=== PATIENT | male | born 1980 | race American Indian/Alaskan Native ===

== ENCOUNTER 2021-11-02 08:35 | Emergency (ER) | payer SELFPAY ==
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
[2021-11-02] MEDS ORDERED: IBUPROFEN 800 MG TAB PO NR (11:33)
[2021-11-02] MEDS ORDERED: predniSONE 20 MG TAB PO NR (11:33)
[2021-11-02] MEDS ORDERED: CYCLOBENZAPRINE 10 MG TAB PO NR (11:33)
[2021-11-02] MEDS ORDERED: IBUPROFEN 800 MG TAB PO ONE (11:55)
[2021-11-02] MEDS ORDERED: CYCLOBENZAPRINE 10 MG TAB PO ONE (11:55)
[2021-11-02] MEDS ORDERED: predniSONE 20 MG TAB PO ONE (11:55)
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
--- NOTE | 2021-11-02 13:50 | Cat Scan Report ---
CT head/brain wo con INDICATION / CLINICAL INFORMATION: 41 years Male; pain. TECHNIQUE: Routine CT head without contrast. All CT scans at this location are performed using CT dos e reduction for ALARA by means of automated exposure control. COMPARISON: None. FINDINGS: BRAIN / INTRACRANIAL CONTENTS: No acute hemorrhage, mass effect, midline shift, hydrocephalus, or acu te, large territorial infarct. No signs of significant atrophy or chronic infarct. No significant whi te matter abnormality seen. CRANIOCERVICAL JUNCTION: No significant abnormality. ORBITS: No significant abnormality of visualized orbits. SINUSES / MASTOIDS: Mild to moderate mucosal thickening seen in the mastoids on the left. ADDITIONAL FINDINGS: None. IMPRESSION: 1. No focal mass, hemorrhage, hydrocephalus, or acute, large territorial infarct. Signer Name: Stefano Raya MD, III Signed: 11/02/2021 1:45 PM Workstation Name: [email or web address]
--- NOTE | 2021-11-02 13:53 | Cat Scan Report ---
CT cervical spine wo con INDICATION / CLINICAL INFORMATION: 41 years Male; pain. TECHNIQUE: Axial CT images of the cervical spine were obtained. Sagittal and coronal reformatted images were pr oduced. All CT scans at this location are performed using CT dose reduction for ALARA by means of aut omated exposure control. COMPARISON: None available. FINDINGS: POST-SURGICAL CHANGES: None. ALIGNMENT: Straightening of the cervical spine noted, which may be related to patient positioning. VERTEBRAE: No signs of fracture. Vertebral bodies are grossly normal in height throughout. No signif icant facet joint disease or osseous foraminal narrowing appreciated. INTRAVERTEBRAL DISCS: Disc heights are fairly well-maintained. Small posterocentral disc protrusion seen at C4-5 which may slightly encroach upon the cervical cord. No definitive signs of cord impingement. Mild disc disease at other levels. No dominant herniation or canal stenosis. PARASPINAL SOFT TISSUES: No significant abnormality. ADDITIONAL FINDINGS: None. IMPRESSION: 1. No signs of acute bony trauma to the cervical spine. 2. Mild degenerative changes as described above. Most marked findings might be at C4-5. Signer Name: Stefano Raya MD, III Signed: 11/02/2021 1:48 PM Workstation Name: [email or web address]
[2021-11-02 14:27] VITALS: BP 132/76
== END 2021-11-02 14:41 | disposition home or self-care (01) ==
LOC: ED 08:35
DX: S16.1XXA Strain of muscle, fascia and tendon at neck level, initial encounter (principal); S09.11XA Strain of muscle and tendon of head, initial encounter; Z79.899 Other long term (current) drug therapy; V87.7XXA Person injured in collision between other specified motor vehicles (traffic), initial encounter; Y93.89 Activity, other specified; Y92.488 Other paved roadways as the place of occurrence of the external cause; Y99.8 Other external cause status
CPT/HCPCS: 70450; 72125; 99284